=== PATIENT | female | born 1970 ===

== ENCOUNTER 2016-08-03 10:10 | Emergency (ER) | payer OTHER ==
[2016-08-03 10:26] VITALS: O2SAT 98
[2016-08-03] MEDS ORDERED: Alum-Mag Hydrox-Simethicone Susp (30 mL) PO STA (11:40)
[2016-08-03] MEDS ORDERED: Sodium Chloride 0.9% 1,000 ML IV STA (11:41)
--- NOTE | 2016-08-03 11:43 | ED PDOC ---
HPI: Abdomen Time Seen by Provider: 08/03/16 10:24 Chief Complaint (Nursing): Abdominal Pain Chief Complaint (Provider): Abdominal Pain History Per: Patient Additional Complaint(s): 45 yo female, denies any PMH, presents to ED with complaints of epigastric abdominal pain and diarrhea x 2 days, which developed after drinking black coffee in the morning. denies any vomiting. No fever or chills. no nausea or vomiting., no medications taken to alleviate symptoms thus far. Past Medical History Reviewed: Nursing Documentation, Vital Signs Vital Signs: Last Vital Signs Temp 98 F 08/03/16 10:23 Pulse Resp BP Pulse Ox 98 08/03/16 11:43 - Medical History PMH: No Chronic Diseases - Surgical History Surgical History: No Surg Hx - Family History Family History: States: No Known Family Hx - Living Arrangements Living Arrangements: With Family - Social History Current smoker - smoking cessation education provided: No Alcohol: None Drugs: Denies - Home Medications Home Medications: Ambulatory Orders Medication Instructions Recorded Famotidine [Pepcid] 20 mg PO DAILY #20 tab 08/03/16 - Allergies Allergies/Adverse Reactions: Allergies Allergy/AdvReac Type Severity Reaction Status Date / Time No Known Allergies Allergy Verified 08/03/16 10:23 Review of Systems ROS Statement: Except As Marked, All Systems Reviewed And Found Negative Gastrointestinal: Positive for: Nausea, Vomiting, Abdominal Pain Physical Exam - Reviewed Nursing Documentation Reviewed: Yes Vital Signs Reviewed: Yes - Physical Exam Appears: Positive for: Well, Non-toxic, No Acute Distress Head Exam: Positive for: ATRAUMATIC, NORMAL INSPECTION, NORMOCEPHALIC Skin: Positive for: Normal Color, Warm, DRY Eye Exam: Positive for: EOMI, Normal appearance, PERRL ENT: Positive for: Normal ENT Inspection Neck: Positive for: Normal, Painless ROM Cardiovascular/Chest: Positive for: Regular Rate, Rhythm Respiratory: Positive for: CNT, Normal Breath Sounds Gastrointestinal/Abdominal: Positive for: Bowel Sounds, Soft, Tenderness ( epigastric) Back: Positive for: Normal Inspection Extremity: Positive for: Normal ROM Neurologic/Psych: Positive for: Alert, Oriented - Laboratory Results Result Diagrams: 08/03/16 06:36 08/03/16 06:36 - ECG O2 Sat by Pulse Oximetry: 98 Medical Decision Making Medical Decision Making: IV access established and treatment initiated with IVF, Pepcid and GI cocktail EKG NSR at 78 bpm, no axis deviation or acute ST changes, as read by [facility] ordered. Labs resulted and reviewed with Pt who demonstrated full understanding Pt medicated with K.Dur due to potassium of 3.4 Pt on re-eval reports feeling greatly improved. Abdomen soft, non tender and non distended on re-eval Stable for discharge at this time. Disposition - Clinical Impression Clinical Impression: Gastritis - Patient ED Disposition Is Patient to be Admitted: No - Disposition Disposition: Routine/Home Disposition Time: 14:58 Condition: STABLE Prescriptions: Famotidine [Pepcid] 20 mg PO DAILY #20 tab Instructions: Gastritis (ED)
[2016-08-03] MEDS ORDERED: Alum-Mag Hydrox-Simethicone Susp (30 mL) ONE (11:52)
[2016-08-03 12:00] LABS: BASO # 0.1 K/uL (0.0-0.2); BASO % 1.2 % (0.0-2.0); EOS # 0.1 K/uL (0.0-0.7); EOS % 1.7 % (0.0-4.0); HEMATOCRIT 26.5 % (34.0-47.0); LYMPH # 1.1 K/uL (1.0-4.3); LYMPH % 22.9 % (20.0-40.0); MEAN CELL VOLUME 64.6 fl (81.0-99.0); MEAN CORPUSCULAR HEMOGLOBIN 19.6 pg (27.0-31.0); MEAN CORPUSCULAR HGB CONC 30.4 g/dL (33.0-37.0); MEAN PLATELET VOLUME 7.7 fl (7.2-11.7); MONO # 0.6 K/uL (0.0-0.8); MONO % 11.4 % (0.0-10.0); NEUT # 3.1 K/uL (1.8-7.0); NEUT % 62.8 % (50.0-75.0); NRBC % 0.1 % (0.0-0.0); RED CELL DISTRIBUTION WIDTH 18.2 % (11.5-14.5)
[2016-08-03 12:02] LABS: URINE BILIRUBIN NEGATIVE (NEGATIVE); URINE BLOOD NEGATIVE (NEGATIVE); URINE COLOR AMBER (YELLOW); URINE GLUCOSE (UA) NEG (Normal); URINE KETONE TRACE mg/dL (NEGATIVE); URINE LEUKOCYTE ESTERASE NEG Leu/uL (Negative); URINE PROTEIN 100 mg/dL (NEGATIVE); URINE UROBILINOGEN 0.2-1.0 mg/dL (0.2-1.0); WBC URINE 3 /hpf (0-5)
[2016-08-03 12:10] LABS: ALB/GLOB RATIO 1.2 (1.0-2.1); ALKALINE PHOSPHATASE 69 U/L (38-126); ALT/SGPT 27 U/L (9-52); AMYLASE 93 U/L (30-110); AST/SGOT 24 U/L (14-36); BILIRUBIN,TOTAL 0.2 mg/dl (0.2-1.3); BLOOD UREA NITROGEN 13 mg/dl (7-17); CALCIUM 8.3 mg/dL (8.4-10.2); CARBON DIOXIDE 21 mmol/L (22-30); CHLORIDE 108 mmol/L (98-107); GFR AFRICAN-AMERICAN > 60; GLUCOSE,RANDOM 96 mg/dL (65-105); LIPASE 116 U/L (23-300); POTASSIUM 3.4 MMOL/L (3.6-5.0); SODIUM 142 mmol/l (132-148); TOTAL PROTEIN 7.6 G/DL (6.3-8.2)
--- NOTE | 2016-08-03 13:41 | CARD ---
APPROVED REPORT EKG Measurement Heart [id number] CT 140P69 [id number] <Conclusion> Normal sinus rhythm Normal ECG
[2016-08-03 15:33] VITALS: BP 127/78; PULSE 78; RESP 20; TEMP 97.6
== END 2016-08-03 15:35 | disposition home or self-care (01) ==
LOC: H.ER 10:10
DX: K29.70 Gastritis, unspecified, without bleeding (principal); R10.9 Unspecified abdominal pain

== ENCOUNTER 2016-11-01 19:08 | Emergency (ER) | payer OTHER ==
[2016-11-01 19:17] VITALS: BP 153/84; RESP 101; TEMP 98.1; O2SAT 100
--- NOTE | 2016-11-01 20:01 | ED PDOC ---
HPI: Back Time Seen by Provider: 11/01/16 19:19 Chief Complaint (Nursing): Back Pain Chief Complaint (Provider): Back Pain History Per: Patient History/Exam Limitations: no limitations Onset/Duration Of Symptoms: Days (x1 month) Current Symptoms Are (Timing): Still Present Additional Complaint(s): Kelly Olsen is a 45 year old female who presents to the emergency department with a complaint of lower back pain exacerbated with exertion ongoing for 1 month. Denied dysuria, constipation, diarrhea, fever or chills. Patient stated she was unable to follow up with PCP due to work conflict and usually takes Tylenol to alleviate pain. PMD: none provided Past Medical History Reviewed: Historical Data, Nursing Documentation, Vital Signs Vital Signs: Last Vital Signs Temp 98.1 F 11/01/16 19:14 Pulse Resp 101 H 11/01/16 19:14 BP 153/84 H 11/01/16 19:14 Pulse Ox 100 11/01/16 19:14 - Medical History PMH: No Chronic Diseases - Surgical History Surgical History: No Surg Hx - Family History Family History: States: Unknown Family Hx - Living Arrangements Living Arrangements: With Family - Social History Current smoker - smoking cessation education provided: No Alcohol: None Drugs: Denies - Home Medications Home Medications: Ambulatory Orders Medication Instructions Recorded Famotidine [Pepcid] 20 mg PO DAILY #20 tab 08/03/16 Cyclobenzaprine [Cyclobenzaprine 10 mg PO Q8H PRN #12 tab 11/01/16 HCl] Naproxen 500 mg PO Q12H PRN #20 ect 11/01/16 - Allergies Allergies/Adverse Reactions: Allergies Allergy/AdvReac Type Severity Reaction Status Date / Time No Known Allergies Allergy Verified 11/01/16 19:13 Review of Systems ROS Statement: Except As Marked, All Systems Reviewed And Found Negative Constitutional: Negative for: Fever, Chills Gastrointestinal: Negative for: Diarrhea, Constipation Genitourinary Female: Negative for: Dysuria Musculoskeletal: Positive for: Back Pain (lower) Physical Exam - Reviewed Nursing Documentation Reviewed: Yes Vital Signs Reviewed: Yes - Physical Exam Appears: Positive for: Well, Non-toxic, No Acute Distress Head Exam: Positive for: ATRAUMATIC, NORMAL INSPECTION, NORMOCEPHALIC Skin: Positive for: Normal Color, Warm, DRY Eye Exam: Positive for: Normal appearance ENT: Positive for: Normal ENT Inspection Neck: Positive for: Normal, Painless ROM Cardiovascular/Chest: Positive for: Regular Rate, Rhythm Respiratory: Positive for: Normal Breath Sounds. Negative for: Respiratory Distress Back: Positive for: Vertebral Tenderness (L2-L4), Muscle Spasm. Negative for: Normal Inspection Extremity: Positive for: Normal ROM. Negative for: Tenderness, Pedal Edema, Deformity Neurologic/Psych: Positive for: Alert, Oriented - ECG O2 Sat by Pulse Oximetry: 100 (RA) Pulse Ox Interpretation: Normal Medical Decision Making Medical Decision Making: Initial Impression: Back pain Initial Plan: * Flexeril 10mg PO * Motrin 600mg PO * Xray spine Scribe Attestation: Documented by Nelly Ibrahim, acting as a scribe for Zulma Bedoya PA-C. Provider Scribe Attestation: All medical record entries made by the Scribe were at my direction and personally dictated by me. I have reviewed the chart and agree that the record accurately reflects my personal performance of the history, physical exam, medical decision making, and the department course for this patient. I have also personally directed, reviewed, and agree with the discharge instructions and disposition. Disposition - Clinical Impression Clinical Impression: Sciatica - Patient ED Disposition Is Patient to be Admitted: No Counseled Patient/Family Regarding: Diagnosis, Need For Followup, Rx Given - Disposition Referrals: [facility] [Outside] Disposition: Routine/Home Disposition Time: 21:09 Condition: GOOD Prescriptions: Cyclobenzaprine [Cyclobenzaprine HCl] 10 mg PO Q8H PRN #12 tab PRN Reason: Muscle Spasm Naproxen 500 mg PO Q12H PRN #20 ect PRN Reason: Pain, Severe (8-10) Instructions: Sciatica (ED) Forms: NTQ-Data (Lithuanian) Print Language: ROMANIAN
--- NOTE | 2016-11-02 08:38 | RAD ---
PROCEDURE: Radiographs of the Lumbar Spine. HISTORY: Low back pain x 1 month, since fall at work COMPARISON: No prior. FINDINGS: BONES: Normal alignment. No listhesis. No fracture. DISC SPACES: Unremarkable. OTHER FINDINGS: None. IMPRESSION: No significant or acute findings to account for/ related to the clinical presentation. No preliminary report provided by emergency department personnel.
== END 2016-11-01 21:58 | disposition home or self-care (01) ==
LOC: H.ER 19:08
DX: M54.30 Sciatica, unspecified side (principal)

== ENCOUNTER 2016-12-16 16:28 | Observation (INO) | payer SELFPAY ==
--- NOTE | 2016-12-16 17:13 | ED PDOC ---
HPI: General Adult <ClaribelyeniferJenni - Last Filed: 12/16/16 18:31> <Shanell Coelho - Last Filed: 12/16/16 23:29> Chief Complaint (Nursing): Abnormal Labs Additional Complaint(s): 46F referred by [facility] for symptomatic, microcytic anemia with a hemoglobinopathy profile c/w either alpha-thalassemia or iron-deficiency anemia. Patient does report dizziness upon standing from a bent over position and intermittent palpitations with chronic fatigue. She denies chest pain, menorrhagia (3 day duration with 2 pads/day), rectal bleeding, or vomiting blood. She reports she' s known about her anemia for a long time and has been prescribed iron pills in the past, but she admits she does not take the pills. PMH: None PSH: C-sxn x2 Smoke: No Alcohol: No Drugs: No Meds: None Allergies: NKDA LMP: 12/12/2016 (Jenni Arredondo) Supervising Attending Note <Jenni Arredondo - Last Filed: 12/16/16 18:31> - Supervising Attending Note The Documented history was done by the: Physician Gem Expert, Attending Physician The documented physical exam was done by the: Physician Gem Expert, Attending Physician - Attestation: I have personally seen and examined this patient.: Yes I have fully participated in the care of the patient.: Yes I have reviewed all pertinent clinical information, including history, physical exam and plan: Yes <Shanell Coelho - Last Filed: 12/16/16 23:29> - Notes: Notes:: Anemia and marked iron deficiency. DW Dr Catalino Ibrahim HemOnc senior insight manager international. Pt will be hospitalized for transfusion and IV iron. (Shanell Coelho) Past Medical History - Family History Family History: States: Unknown Family Hx <Jenni Arredondo - Last Filed: 12/16/16 18:31> <Shanell Coelho - Last Filed: 12/16/16 23:29> Vital Signs: Last Vital Signs Temp 98 F 12/16/16 21:39 Pulse 75 12/16/16 22:06 Resp 18 12/16/16 22:06 BP 144/87 12/16/16 21:39 Pulse Ox 100 12/16/16 21:39 - Home Medications Home Medications: Ambulatory Orders Medication Instructions Recorded No Known Home Med 12/16/16 - Allergies Allergies/Adverse Reactions: Allergies Allergy/AdvReac Type Severity Reaction Status Date / Time No Known Allergies Allergy Verified 12/16/16 16:36 Review of Systems ROS Statement: Except As Marked, All Systems Reviewed And Found Negative Constitutional: Positive for: Other (Fatigue) Cardiovascular: Positive for: Palpitations Neurological: Positive for: Dizziness <Jenni Arredondo - Last Filed: 12/16/16 18:31> Physical Exam - Reviewed Vital Signs Reviewed: Yes - Physical Exam Appears: Positive for: Well, Non-toxic, No Acute Distress Head Exam: Positive for: ATRAUMATIC, NORMAL INSPECTION Skin: Positive for: Normal Color, Warm, Dry Eye Exam: Positive for: Other (Scleral pallor) Neck: Positive for: Normal, Supple Cardiovascular/Chest: Positive for: Regular Rate, Rhythm, Tachycardia Respiratory: Positive for: Normal Breath Sounds. Negative for: Rales, Rhonchi, Wheezing, Respiratory Distress Gastrointestinal/Abdominal: Positive for: Normal Exam, Bowel Sounds, Soft. Negative for: Tenderness Extremity: Positive for: Normal ROM. Negative for: Pedal Edema Neurologic/Psych: Positive for: Alert, Oriented <Jenni Arredondo - Last Filed: 12/16/16 18:31> - Laboratory Results Result Diagrams: 12/16/16 17:20 12/16/16 17:20 - ECG O2 Sat by Pulse Oximetry: 100 <Jenni Arredondo - Last Filed: 12/16/16 18:31> - Laboratory Results Result Diagrams: 12/16/16 17:20 12/16/16 17:20 <Shanell Coelho - Last Filed: 12/16/16 23:29> Medical Decision Making <Jenni Arredondo - Last Filed: 12/16/16 18:31> <Shanell Coelho - Last Filed: 12/16/16 23:29> Medical Decision Making: Symptomatic microcytic anemia. - Repeat CBC-microcytic anemia (Hgb-7.3, MCV-61.6), CMP- WNL, Coags - Orthostatics- negative - Upreg-neg/Urine Dip - T&S- completed Discussed with attending and decision made to admit for obs pending heme/onc evaluation. (Jenni Arredondo) Disposition - Patient ED Disposition Is Patient to be Admitted: Yes Counseled Patient/Family Regarding: Studies Performed, Diagnosis, Need For Followup - Disposition Disposition Time: 18:29 - Pt Status Changed To: Hospital Disposition Of: Observation <Jenni Arredondo - Last Filed: 12/16/16 18:31> <Shanell Coelho - Last Filed: 12/16/16 23:29> - Clinical Impression Clinical Impression: Symptomatic anemia - Disposition Condition: GOOD
[2016-12-16] MEDS ORDERED: Sodium Chloride 0.9% 500 ML IV STA (17:25)
[2016-12-16 17:30] LABS: BASO # 0.1 K/uL (0.0-0.2); BASO % 0.7 % (0.0-2.0); EOS # 0.1 K/uL (0.0-0.7); EOS % 1.2 % (0.0-4.0); HEMATOCRIT 24.3 % (34.0-47.0); LYMPH # 2.4 K/uL (1.0-4.3); MEAN CELL VOLUME 61.6 fl (81.0-99.0); MEAN CORPUSCULAR HEMOGLOBIN 18.5 pg (27.0-31.0); MEAN CORPUSCULAR HGB CONC 30.1 g/dL (33.0-37.0); MEAN PLATELET VOLUME 7.6 fl (7.2-11.7); MONO # 0.5 K/uL (0.0-0.8); MONO % 6.8 % (0.0-10.0); NEUT # 4.3 K/uL (1.8-7.0); NEUT % 58.3 % (50.0-75.0); NRBC % 0.2 % (0.0-0.0); RED CELL DISTRIBUTION WIDTH 19.2 % (11.5-14.5); WHITE BLOOD COUNT 7.4 K/uL (4.8-10.8)
[2016-12-16 17:45] LABS: ALB/GLOB RATIO 1.3 (1.0-2.1); ALKALINE PHOSPHATASE 66 U/L (38-126); ALT/SGPT 22 U/L (9-52); AST/SGOT 24 U/L (14-36); BILIRUBIN,TOTAL 0.1 mg/dl (0.2-1.3); BLOOD UREA NITROGEN 14 mg/dl (7-17); CALCIUM 8.8 mg/dL (8.4-10.2); CARBON DIOXIDE 23 mmol/L (22-30); CHLORIDE 107 mmol/L (98-107); GFR AFRICAN-AMERICAN > 60; GLUCOSE,RANDOM 108 mg/dL (65-105); POTASSIUM 3.7 MMOL/L (3.6-5.0); SODIUM 141 mmol/l (132-148); TOTAL PROTEIN 7.5 G/DL (6.3-8.2)
[2016-12-16 17:47] LABS: PARTIAL THROMBOPLASTIN TIME 25.3 Seconds (25.6-37.1)
--- NOTE | 2016-12-16 19:43 | CP.PCM.HP ---
History of Present Illness - History of Present Illness History of Present Illness: 46yo F with PMHx BHAVIK admitted for symptomatic anemia. Anemia x10 years, has not taken Fe PO as instructed by prior PMD. LMP 12/12/16, regular, normal amount of bleeding, q28 days, duration 3 days with 2pads daily. In past 1 year, no breakthrough bleeding between periods. Denies dizziness, lightheadedness, SOB, ESTRELLA, exercise intolerance. Denies PMH/FHx cervical ca, breast ca, ovarian ca. Denies fibroids. PMHx: as above FHx: NC Meds: check in [facility] Social hx: denies EtOH, smoking, drugs Allergies: NKDA PCP: [facility] ED course: VSS CBC, CMP, T&S, PT, PTT 1u pRBC, transfuse 1 unit c/s H/O Present on Admission - Present on Admission Any Indicators Present on Admission: No Review of Systems - Review of Systems All systems: reviewed and no additional remarkable complaints except Past Patient History - Past Social History Smoking Status: Never Smoked - MUSCULOSKELETAL/RHEUMATOLOGICAL Hx Back Pain: Yes - PSYCHIATRIC Hx Substance Use: No - SURGICAL HISTORY Hx Surgeries: Yes Meds Allergies/Adverse Reactions: Allergies Allergy/AdvReac Type Severity Reaction Status Date / Time No Known Allergies Allergy Verified 12/16/16 16:36 Physical Exam - Constitutional Appears: Non-toxic, No Acute Distress - Head Exam Head Exam: ATRAUMATIC, NORMOCEPHALIC - Eye Exam Eye Exam: EOMI, Normal appearance - ENT Exam ENT Exam: Mucous Membranes Moist - Neck Exam Neck exam: Positive for: Full Rom, Normal Inspection - Respiratory Exam Respiratory Exam: Clear to Auscultation Bilateral, NORMAL BREATHING PATTERN - Cardiovascular Exam Cardiovascular Exam: REGULAR RHYTHM. absent: Systolic Murmur - GI/Abdominal Exam GI & Abdominal Exam: Normal Bowel Sounds, Soft. absent: Tenderness - Extremities Exam Extremities exam: Positive for: normal inspection. Negative for: calf tenderness, pedal edema - Back Exam Back exam: NORMAL INSPECTION Additional comments: cap refill <2 sec - Neurological Exam Neurological exam: Alert, Oriented x3 - Skin Skin Exam: Dry, Warm Results - Vital Signs Recent Vital Signs: Last Vital Signs Temp 96.5 F L 12/16/16 16:36 Pulse 91 H 12/16/16 16:36 Resp 16 12/16/16 16:36 BP 118/75 12/16/16 16:36 Pulse Ox 100 12/16/16 18:31 - Labs Result Diagrams: 12/16/16 17:20 12/16/16 17:20 Labs: Laboratory Results - last 24 hr 12/16/16 12/16/16 12/16/16 17:20 17:20 17:20 WBC 7.4 RBC 3.94 Hgb 7.3 L Hct 24.3 L MCV 61.6 L MCH 18.5 L MCHC 30.1 L RDW 19.2 H Plt Count 416 H MPV 7.6 Neut % (Auto) 58.3 Lymph % (Auto) 33.0 [place] % (Auto) 6.8 Eos % (Auto) 1.2 Baso % (Auto) 0.7 Neut # 4.3 Lymph # 2.4 [place] # 0.5 Eos # 0.1 Baso # 0.1 PT 11.8 INR 1.0 APTT 25.3 L Sodium 141 Potassium 3.7 Chloride 107 Carbon Dioxide 23 Anion Gap 14 BUN 14 Creatinine 0.6 L Est GFR ( Amer) > 60 Est GFR (Non-Af Amer) > 60 Random Glucose 108 H Calcium 8.8 Total Bilirubin 0.1 L AST 24 ALT 22 Alkaline Phosphatase 66 Total Protein 7.5 Albumin 4.2 Globulin 3.3 Albumin/Globulin Ratio 1.3 Blood Type Antibody Screen Crossmatch BBK History Checked 12/16/16 17:20 WBC RBC Hgb Hct MCV MCH MCHC RDW Plt Count MPV Neut % (Auto) Lymph % (Auto) [place] % (Auto) Eos % (Auto) Baso % (Auto) Neut # Lymph # [place] # Eos # Baso # PT INR APTT Sodium Potassium Chloride Carbon Dioxide Anion Gap BUN Creatinine Est GFR ( Amer) Est GFR (Non-Af Amer) Random Glucose Calcium Total Bilirubin AST ALT Alkaline Phosphatase Total Protein Albumin Globulin Albumin/Globulin Ratio Blood Type O POSITIVE Antibody Screen Negative Crossmatch See Detail BBK History Checked No verified bt Assessment & Plan - Assessment and Plan (Free Text) Assessment: 46yo F with PMHx BHAVIK admitted for symptomatic anemia. 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 Bed Request Type: Telemetry Admitting Physician: Elsa Phillips
--- NOTE | 2016-12-16 21:16 | US ---
EXAM: US Pelvis Complete, Transabdominal CLINICAL HISTORY: 46 years old, female; Signs and symptoms; Menstruation abnormalities; Irregular menstruation; Additional info: Dysfunctional uterine bleeding TECHNIQUE: Real-time transabdominal pelvic ultrasound (complete) with image documentation. COMPARISON: No relevant prior studies available. FINDINGS: Uterus/cervix: Uterus measures 9.0 x 4.6 x 5.5 cm in size. No myometrial mass. Endometrium: 0.5 cm in thickness. Right ovary: 1.7 x 1.2 x 1.7 cm in size. No mass. Normal flow. Left ovary: 2.3 x 1.8 x 2.7 cm in size. No mass. Normal flow. Free fluid: No significant free fluid. Bladder: Unremarkable as visualized. IMPRESSION: 1.No acute findings.
[2016-12-17 05:32] LABS: HEMATOCRIT 26.2 % (34.0-47.0); MEAN CELL VOLUME 63.8 fl (81.0-99.0); MEAN CORPUSCULAR HEMOGLOBIN 19.5 pg (27.0-31.0); MEAN CORPUSCULAR HGB CONC 30.5 g/dL (33.0-37.0); RED CELL DISTRIBUTION WIDTH 21.3 % (11.5-14.5); WHITE BLOOD COUNT 7.2 K/uL (4.8-10.8)
[2016-12-17 05:34] LABS: BLOOD UREA NITROGEN 10 mg/dl (7-17); CALCIUM 8.3 mg/dL (8.4-10.2); CARBON DIOXIDE 24 mmol/L (22-30); CHLORIDE 109 mmol/L (98-107); GFR AFRICAN-AMERICAN > 60; GLUCOSE,RANDOM 91 mg/dL (65-105); POTASSIUM 3.8 MMOL/L (3.6-5.0); SODIUM 140 mmol/l (132-148)
--- NOTE | 2016-12-17 08:13 | CP.PCM.PN ---
Subjective - Date & Time of Evaluation Date of Evaluation: 12/17/16 Time of Evaluation: 08:08 - Subjective Subjective: 46 y/o female with PMHx of iron deficiency anemia for 10 years seen and evaluated this morning at bedside. Patient appears to be resting comfortably in her bed and is in NAD. Patient is AAOx3 and denies of any acute overnight events. Patient states that she is feeling a lot better than she came in yesterday. Patient denies of any overnight F/N/V/C/shortness of breath/chest pain/palpitations/headache/dizziness. Patient states that she has been walking around to go to the bathroom. Denies of any other complains at this time. Objective - Vital Signs/Intake and Output Vital Signs (last 24 hours): Temp Pulse Resp BP Pulse Ox 98.2 F 78 20 117/77 99 12/17/16 05:50 12/17/16 05:50 12/17/16 05:50 12/17/16 05:50 12/17/16 05:50 - Labs Labs: 12/17/16 04:10 12/17/16 04:10 PT 11.8 Seconds (9.8-13.1) 12/16/16 17:20 INR 1.0 (0.9-1.2) 12/16/16 17:20 APTT 25.3 Seconds (25.6-37.1) L 12/16/16 17:20 - Constitutional Appears: Well, Non-toxic, No Acute Distress - Head Exam Head Exam: ATRAUMATIC, NORMAL INSPECTION - Eye Exam Eye Exam: Normal appearance - ENT Exam ENT Exam: Mucous Membranes Moist, Normal Exam - Neck Exam Neck Exam: Full ROM, Normal Inspection - Respiratory Exam Respiratory Exam: Clear to Ausculation Bilateral, NORMAL BREATHING PATTERN. absent: Rales, Rhonchi, Wheezes - Cardiovascular Exam Cardiovascular Exam: REGULAR RHYTHM, +S1, +S2. absent: Diastolic murmur, Murmur - GI/Abdominal Exam GI & Abdominal Exam: Soft, Normal Bowel Sounds. absent: Firm, Rigid, Tenderness - Rectal Exam Rectal Exam: Deferred - Extremities Exam Extremities Exam: Full ROM, Normal Capillary Refill, Normal Inspection. absent : Calf Tenderness, Pedal Edema, Tenderness - Back Exam Back Exam: Full ROM, NORMAL INSPECTION. absent: tenderness - Neurological Exam Neurological Exam: Alert, Awake, Oriented x3 - Psychiatric Exam Psychiatric exam: Normal Affect, Normal Mood - Skin Skin Exam: Intact, Normal Color, Warm Assessment and Plan - Assessment and Plan (Free Text) Assessment: 46 y/o female with PMHx of iron deficiency anemia admitted for symptomatic anemia. Plan: 1). Anemia - Hemoglobinopathy workup shows microcytic anemia consistent with iron deficiency anemia or a-thalassemia - 1 unit PRBC and IV venofir since yesterday - H&H 7.3/24.3 to 8.0/26.2 this morning - 1 unit of PRBC and IV venofir this morning - f/u CBC - Stool occult blood - Pending - Pelvis US shows no acute findings - Heme/onc on board 2). DVT PPx - SCDs - Ambulating
--- NOTE | 2016-12-17 11:09 | CP.PCM.CON ---
History of Present Illness - History of Present Illness History of Present Illness: Heme/Onc 46 yr old F with PMHx of iron deficiency anemia and irregular menstrual cycle in the last 4 months admitted for symptomatic anemia. Patient was seen and examined at bedside. Denies weakness, SOB, headachess, dizziness or GI/pelvic discomfort. Patient reports she has required iron supplements since childhood and has always been healthy overall. She has forgotten to take iron supplements regularly in the past few months and has not followed up with her PMD. 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 She usually has a 28 day menstrual cycle, but in the last 4 months has had 2 additional periods, all with normal amount of bleeding ( 2 pads daily x 3 days). Patient also reports mild gastritis. Patient has no other concerns or complaints at this time. Review of Systems - Constitutional Constitutional: absent: Fatigue, Headache, Weakness - EENT Eyes: absent: Blurred Vision, Change in Vision Nose/Mouth/Throat: absent: Odynophagia, Sore Throat - Cardiovascular Cardiovascular: absent: Chest Pain, Lightheadedness, Syncope - Respiratory Respiratory: absent: Cough, Dyspnea, Hemoptysis - Gastrointestinal Gastrointestinal: absent: Abdominal Pain, Heartburn (occasional mild gastritis) , Hematochezia - Genitourinary Genitourinary: absent: Dysuria, Hematuria - Reproductive: Female Reproductive:Female: Normal Menses ((2 pads daily x 3 days); had 2 additional periods in the last 4 months). absent: Dysmenorrhea, Pelvic Pain - Musculoskeletal Musculoskeletal: absent: Arthralgias, Muscle Weakness, Numbness - Neurological Neurological: absent: Abnormal Gait, Abnormal Speech, Syncope - Endocrine Endocrine: absent: Cold Intolorance, Heat Intolorance, Palpitations - Hematologic/Lymphatic Hematologic: absent: Easy Bleeding, Easy Bruising Past Patient History - Past Medical History & Family History Past Medical History?: Yes - Past Social History Smoking Status: Never Smoked - CARDIAC Hx Cardiac Disorders: No - PULMONARY Hx Respiratory Disorders: No - NEUROLOGICAL Hx Neurological Disorder: No - HEENT Hx HEENT Problems: No - RENAL Hx Chronic Kidney Disease: No - ENDOCRINE/METABOLIC Hx Endocrine Disorders: No - HEMATOLOGICAL/ONCOLOGICAL Hx Blood Disorders: Yes Hx Anemia: Yes - INTEGUMENTARY Hx Dermatological Problems: No - MUSCULOSKELETAL/RHEUMATOLOGICAL Hx Musculoskeletal Disorders: Yes Hx Back Pain: Yes Hx Falls: No - GASTROINTESTINAL Hx Gastrointestinal Disorders: No - GENITOURINARY/GYNECOLOGICAL Hx Genitourinary Disorders: No - PSYCHIATRIC Hx Psychophysiologic Disorder: No Hx Substance Use: No - SURGICAL HISTORY Hx Surgeries: Yes Hx Section: Yes - ANESTHESIA Hx Anesthesia: Yes Hx Anesthesia Reactions: No Hx Malignant Hyperthermia: No Meds Allergies/Adverse Reactions: Allergies Allergy/AdvReac Type Severity Reaction Status Date / Time No Known Allergies Allergy Verified 12/16/16 16:36 - Medications Medications: Current Medications Iron Sucrose 300 mg/ Sodium (Chloride) 265 mls @ 132.5 mls/hr IVPB ONCE ONE Stop: 12/18/16 12:29 Physical Exam - Constitutional Appears: Well, Non-toxic, No Acute Distress - Head Exam Head Exam: ATRAUMATIC, NORMOCEPHALIC - Eye Exam Eye Exam: EOMI, PERRL. absent: Scleral icterus - ENT Exam ENT Exam: Mucous Membranes Moist - Respiratory Exam Respiratory Exam: Clear to Auscultation Bilateral, NORMAL BREATHING PATTERN - Cardiovascular Exam Cardiovascular Exam: REGULAR RHYTHM, +S1, +S2 - Extremities Exam Extremities exam: Positive for: full ROM, normal capillary refill. Negative for : pedal edema - Neurological Exam Neurological exam: Alert, CN II-XII Intact, Oriented x3 - Skin Skin Exam: Normal Color (no rash, no petechiae) Results - Vital Signs Recent Vital Signs: Last Vital Signs Temp 98.0 F 12/17/16 08:09 Pulse 74 12/17/16 09:00 Resp 19 12/17/16 08:09 BP 111/71 12/17/16 08:09 Pulse Ox 99 12/17/16 08:09 - Labs Result Diagrams: 12/17/16 04:10 12/17/16 04:10 Labs: Laboratory Results - last 24 hr 12/16/16 12/16/16 12/16/16 17:20 17:20 17:20 WBC 7.4 RBC 3.94 Hgb 7.3 L Hct 24.3 L MCV 61.6 L MCH 18.5 L MCHC 30.1 L RDW 19.2 H Plt Count 416 H MPV 7.6 Neut % (Auto) 58.3 Lymph % (Auto) 33.0 Ocean % (Auto) 6.8 Eos % (Auto) 1.2 Baso % (Auto) 0.7 Neut # 4.3 Lymph # 2.4 Ocean # 0.5 Eos # 0.1 Baso # 0.1 Retic Count PT 11.8 INR 1.0 APTT 25.3 L Sodium 141 Potassium 3.7 Chloride 107 Carbon Dioxide 23 Anion Gap 14 BUN 14 Creatinine 0.6 L Est GFR ( Amer) > 60 Est GFR (Non-Af Amer) > 60 Random Glucose 108 H Calcium 8.8 Total Bilirubin 0.1 L AST 24 ALT 22 Alkaline Phosphatase 66 Lactate Dehydrogenase Total Protein 7.5 Albumin 4.2 Globulin 3.3 Albumin/Globulin Ratio 1.3 Blood Type Blood Type Confirm Antibody Screen Crossmatch BBK History Checked 12/16/16 12/16/16 12/16/16 17:20 18:11 19:55 WBC RBC Hgb Hct MCV MCH MCHC RDW Plt Count MPV Neut % (Auto) Lymph % (Auto) Ocean % (Auto) Eos % (Auto) Baso % (Auto) Neut # Lymph # Ocean # Eos # Baso # Retic Count PT INR APTT Sodium Potassium Chloride Carbon Dioxide Anion Gap BUN Creatinine Est GFR ( Amer) Est GFR (Non-Af Amer) Random Glucose Calcium Total Bilirubin AST ALT Alkaline Phosphatase Lactate Dehydrogenase 513 Total Protein Albumin Globulin Albumin/Globulin Ratio Blood Type O POSITIVE Blood Type Confirm O POSITIVE Antibody Screen Negative Crossmatch See Detail BBK History Checked No verified bt 12/16/16 12/17/16 12/17/16 19:55 04:10 04:10 WBC 7.2 RBC 4.10 Hgb 8.0 L Hct 26.2 L MCV 63.8 L D MCH 19.5 L MCHC 30.5 L RDW 21.3 H Plt Count 320 MPV Neut % (Auto) Lymph % (Auto) Ocean % (Auto) Eos % (Auto) Baso % (Auto) Neut # Lymph # Ocean # Eos # Baso # Retic Count 1.1 PT INR APTT Sodium 140 Potassium 3.8 Chloride 109 H Carbon Dioxide 24 Anion Gap 11 BUN 10 Creatinine 0.6 L Est GFR ( Amer) > 60 Est GFR (Non-Af Amer) > 60 Random Glucose 91 Calcium 8.3 L Total Bilirubin AST ALT Alkaline Phosphatase Lactate Dehydrogenase Total Protein Albumin Globulin Albumin/Globulin Ratio Blood Type Blood Type Confirm Antibody Screen Crossmatch BBK History Checked Assessment & Plan - Assessment and Plan (Free Text) Assessment: 46 yr old F with PMHx of iron deficiency anemia and irregular menstrual cycle in last 4 months admitted for symptomatic anemia. Patient is asymptomatic with stable H/H of 8.0/26.2 s/p transfusion of 1 unit leukocyte reduced pRBC's and 1 dose of venofer. Plan: -Serum transferrin -Administer 300mg Venofer as ordered -take Ferrous sulfate 325mg PO TID -take stool softener PO TID PRN for constipation -followup with GI, heme/onc, Mechanical Car Checker and PMD as outpatient Patient seen and examined at bedside with Catalino Barbour M.D. PGY2 - Date & Time Date: 12/17/16 Time: 09:00
[2016-12-17 15:51] VITALS: BP 116/76; PULSE 76; RESP 20; TEMP 98.1; O2SAT 98
--- NOTE | 2016-12-18 04:15 | CON ---
DATE: 12/17/2016 REFERRING PHYSICIAN: REASON FOR CONSULTATION: Anemia. HISTORY OF PRESENT ILLNESS: This is a 46-year-old female with a history of anemia chronically, never taken her iron pills, which she was prescribed extending for almost a decade. Period is regular. Has no GI concerns or complaints. No heartburn, reflux or weight loss. No hematemesis or hematochezia. Currently lying in bed comfortably, in no apparent distress. PAST MEDICAL HISTORY: As above. PAST SURGICAL HISTORY: As above. MEDICATIONS: Has been reviewed. REVIEW OF SYSTEMS: All other systems have been reviewed and negative apart from the HPI. PHYSICAL EXAMINATION: GENERAL: This is a pleasant middle-aged female, lying in bed comfortably, in no apparent distress. VITAL SIGNS: Reviewed in the hospital, grossly unremarkable. HEENT: Head is normocephalic and atraumatic. Eyes, pupils equal, round and reactive to light bilaterally. No conjunctival pallor or icterus. NECK: Supple. Normal range of motion. No lymphadenopathy appreciated. LUNGS: Coarse breath sounds bilaterally. HEART: S1 and S2. Regular rate and rhythm. No murmurs appreciated. ABDOMEN: Soft, nontender. Bowel sounds present. No rebound. No guarding. RECTAL: Deferred. EXTREMITIES: Pulses felt bilaterally. SKIN: Warm, dry, and intact. NEUROLOGIC: A and O x3. LABORATORY DATA: Reviewed. WBC is 7.2; hemoglobin is 7.3 initially, now 8.0 today; platelet count is 415, now 320. Creatinine is 0.6. ASSESSMENT AND PLAN: This is a 46-year-old female with chronic anemia, unclear etiology. From a gastrointestinal standpoint, we will need at some point an endoscopy and a colonoscopy when agreeable. We will follow up with hematology as well. Thank you for the consult. Jonathan Slade MD/ PhD cc:
--- NOTE | 2016-12-18 07:20 | CP.PCM.DIS ---
Provider - Provider Date of Admission: 12/16/16 18:31 Attending physician: Elsa Phillips MD Time Spent in preparation of Discharge (in minutes): 20 Hospital Course - Lab Results Lab Results: Most Recent Lab Values WBC 7.2 K/uL (4.8-10.8) 12/17/16 04:10 RBC 4.10 Mil/uL (3.80-5.20) 12/17/16 04:10 Hgb 8.0 g/dL (12.0-16.0) L 12/17/16 04:10 Hct 26.2 % (34.0-47.0) L 12/17/16 04:10 MCV 63.8 fl (81.0-99.0) L D 12/17/16 04:10 MCH 19.5 pg (27.0-31.0) L 12/17/16 04:10 MCHC 30.5 g/dL (33.0-37.0) L 12/17/16 04:10 RDW 21.3 % (11.5-14.5) H 12/17/16 04:10 Plt Count 320 K/uL (130-400) 12/17/16 04:10 MPV 7.6 fl (7.2-11.7) 12/16/16 17:20 Neut % (Auto) 58.3 % (50.0-75.0) 12/16/16 17:20 Lymph % (Auto) 33.0 % (20.0-40.0) 12/16/16 17:20 Parke % (Auto) 6.8 % (0.0-10.0) 12/16/16 17:20 Eos % (Auto) 1.2 % (0.0-4.0) 12/16/16 17:20 Baso % (Auto) 0.7 % (0.0-2.0) 12/16/16 17:20 Neut # 4.3 K/uL (1.8-7.0) 12/16/16 17:20 Lymph # 2.4 K/uL (1.0-4.3) 12/16/16 17:20 Parke # 0.5 K/uL (0.0-0.8) 12/16/16 17:20 Eos # 0.1 K/uL (0.0-0.7) 12/16/16 17:20 Baso # 0.1 K/uL (0.0-0.2) 12/16/16 17:20 Retic Count 1.1 % (0.5-1.5) 12/16/16 19:55 PT 11.8 Seconds (9.8-13.1) 12/16/16 17:20 INR 1.0 (0.9-1.2) 12/16/16 17:20 APTT 25.3 Seconds (25.6-37.1) L 12/16/16 17:20 Sodium 140 mmol/l (132-148) 12/17/16 04:10 Potassium 3.8 MMOL/L (3.6-5.0) 12/17/16 04:10 Chloride 109 mmol/L (98-107) H 12/17/16 04:10 Carbon Dioxide 24 mmol/L (22-30) 12/17/16 04:10 Anion Gap 11 (10-20) 12/17/16 04:10 BUN 10 mg/dl (7-17) 12/17/16 04:10 Creatinine 0.6 mg/dL (0.7-1.2) L 12/17/16 04:10 Est GFR ( Amer) > 60 12/17/16 04:10 Est GFR (Non-Af Amer) > 60 12/17/16 04:10 Random Glucose 91 mg/dL (65-105) 12/17/16 04:10 Calcium 8.3 mg/dL (8.4-10.2) L 12/17/16 04:10 Transferrin 307.66 mg/dL (206-381) 12/17/16 04:20 Total Bilirubin 0.1 mg/dl (0.2-1.3) L 12/16/16 17:20 AST 24 U/L (14-36) 12/16/16 17:20 ALT 22 U/L (9-52) 12/16/16 17:20 Alkaline Phosphatase 66 U/L (38-126) 12/16/16 17:20 Lactate Dehydrogenase 513 U/L (313-618) 12/16/16 19:55 Total Protein 7.5 G/DL (6.3-8.2) 12/16/16 17:20 Albumin 4.2 g/dL (3.5-5.0) 12/16/16 17:20 Globulin 3.3 gm/dL (2.2-3.9) 12/16/16 17:20 Albumin/Globulin Ratio 1.3 (1.0-2.1) 12/16/16 17:20 Blood Type O POSITIVE 12/16/16 17:20 Blood Type Confirm O POSITIVE 12/16/16 18:11 Antibody Screen Negative 12/16/16 17:20 Crossmatch See Detail 12/16/16 17:20 BBK History Checked No verified bt 12/16/16 17:20 - Hospital Course Hospital Course: 46 y/o female with PMHx of iron deficiency anemia was admitted for symptomatic anemia. During the hospital stay, patient received 2 units of PRBC and 2 IV venofir. Patient was also seen by hematology. Patient became stable after the transfusion. Patient was discharged home with a CBC script, GI clinic and PMD follow up. - Date & Time of H&P Date of H&P: 12/18/16 Time of H&P: 07:20 Discharge Exam - Head Exam Head Exam: ATRAUMATIC, NORMAL INSPECTION - Eye Exam Eye Exam: Normal appearance - ENT Exam ENT Exam: Mucous Membranes Moist, Normal Exam - Neck Exam Neck exam: Full Rom, Normal Inspection - Respiratory Exam Respiratory Exam: Clear to PA & Lateral, UNREMARKABLE. absent: Rales, Rhonchi, Wheezes - Cardiovascular Exam Cardiovascular Exam: REGULAR RHYTHM, +S1, +S2. absent: Tachycardia, Diastolic murmur, Systolic Murmur - GI/Abdominal Exam GI & Abdominal Exam: Normal Bowel Sounds, Soft, Unremarkable. absent: Firm, Rigid - Rectal Exam Rectal Exam: Deferred - Extremities Exam Extremities exam: full ROM, normal inspection - Back Exam Back exam: FULL ROM, NORMAL INSPECTION. absent: tenderness - Neurological Exam Neurological exam: Alert, Oriented x3 - Psychiatric Exam Psychiatric exam: Normal Affect, Normal Mood - Skin Skin Exam: Intact, Normal Color, Warm Discharge Plan - Follow Up Plan Condition: GOOD Disposition: HOME/ ROUTINE Instructions: Iron Rich Diet (GEN), Iron Deficiency Anemia (GEN), Anemia (GEN) Additional Instructions: please repeat cbc in the Am with given script, follow up with your PCP on at 9:30am for results at the [facility] at [address] [place] [address] Please make sure to see Dr. Gipson for GI appointment on 01/29/17 at 10:30am to schedule a colonoscopy Please start taking iron TID with colace by mouth every day for the next 4weeks , iron level will be repeated after Referrals: Brandan FAULKNER,MD [facility] [Medical Doctor] -
--- NOTE | 2016-12-18 08:50 | CARD ---
APPROVED REPORT EKG Measurement Heart [id number] VA [id number] <Conclusion> Normal sinus rhythm Normal ECG
== END 2016-12-17 18:25 | disposition home or self-care (01) ==
LOC: H.ER 16:28 → H.ERHOLD 18:31 → H.TEL 21:21
PROVIDERS: ADMIT Family Medicine Geriatric Medicine; ATTEND Family Medicine Geriatric Medicine
DX: D50.9 Iron deficiency anemia, unspecified (principal); D58.2 Other hemoglobinopathies; K29.70 Gastritis, unspecified, without bleeding
CPT/HCPCS: 36415; 36430; 76856; 80048; 80053; 81025; 83010; 83615; 84466; 85025; 85027; 85044; 85610; 85730; 86850; 86900; 86920; 96360; 99281; G0378; J1756; J7040; P9051

== ENCOUNTER 2017-04-16 16:20 | Emergency (ER) | payer SELFPAY ==
[2017-04-16 16:26] VITALS: PULSE 74; RESP 16; TEMP 97.4; O2SAT 99
[2017-04-16] MEDS ORDERED: Sodium Chloride 0.9% 1,000 ML IV STA (17:31)
--- NOTE | 2017-04-16 17:34 | ED PDOC ---
HPI: Abdomen Time Seen by Provider: 04/16/17 16:58 Chief Complaint (Nursing): Abdominal Pain Chief Complaint (Provider): Abd pain History Per: Patient History/Exam Limitations: no limitations Onset/Duration Of Symptoms: Days (1 week) Additional Complaint(s): Pt. with suprapubic pain for 1 week. Like a pressure. No back pain. No dysuria. No nausea, vomit, diarrhea. Had mild dizziness yesterday that is gone now. No chest pain. No dyspnea. No vaginal bleeding. No weakness, numbness, tingles, headaches. Has anemia and takes meds for it In Jan 2017 and Feb 2017 spotting for 1 day and gone. Mar 2017 no period. Past Medical History Reviewed: Nursing Documentation, Vital Signs Vital Signs: Last Vital Signs Temp 97.4 F L 04/16/17 16:23 Pulse 74 04/16/17 16:23 Resp 16 04/16/17 16:23 BP 151/100 H 04/16/17 16:23 Pulse Ox 99 04/16/17 17:35 - Medical History PMH: Anemia Denies: Chronic Kidney Disease - Family History Family History: States: Unknown Family Hx - Living Arrangements Living Arrangements: With Family - Social History Current smoker - smoking cessation education provided: No Alcohol: None - Home Medications Home Medications: Ambulatory Orders Medication Instructions Recorded No Known Home Med 12/16/16 - Allergies Allergies/Adverse Reactions: Allergies Allergy/AdvReac Type Severity Reaction Status Date / Time No Known Allergies Allergy Verified 12/16/16 16:36 Review of Systems ROS Statement: Except As Marked, All Systems Reviewed And Found Negative Gastrointestinal: Positive for: Abdominal Pain Physical Exam - Reviewed Nursing Documentation Reviewed: Yes Vital Signs Reviewed: Yes - Physical Exam Appears: Positive for: Non-toxic, No Acute Distress Head Exam: Positive for: ATRAUMATIC, NORMAL INSPECTION, NORMOCEPHALIC Skin: Positive for: Normal Color, Warm, DRY Eye Exam: Positive for: EOMI, Normal appearance, PERRL ENT: Positive for: Normal ENT Inspection Neck: Positive for: Normal, Painless ROM Cardiovascular/Chest: Positive for: Regular Rate, Rhythm Respiratory: Positive for: CNT, Normal Breath Sounds Gastrointestinal/Abdominal: Positive for: Bowel Sounds, Soft, Tenderness (mild tender suprapubic; no tenderness to left or right lower or upper quadrant; no periumbilical tenderness) Back: Positive for: Normal Inspection. Negative for: L CVA Tenderness, R CVA Tenderness Extremity: Positive for: Normal ROM. Negative for: Tenderness, Pedal Edema Neurologic/Psych: Positive for: Alert, associate designer II-XII, Oriented. Negative for: Motor/Sensory Deficits, Aphasia, Facial Droop - Laboratory Results Result Diagrams: 04/16/17 17:52 04/16/17 17:52 Interpretation Of Abn Labs: no acute Urine POC: Negative Urine dip results: Negative for: Leukocyte Esterase, Nitrate - ECG ECG: Positive for: Interpreted By Me, Viewed By Me ECG Rhythm: Positive for: Normal QRS, Normal ST Segment, Sinus Rhythm O2 Sat by Pulse Oximetry: 99 Pulse Ox Interpretation: Normal - CT Scan/US US Other Rad Studies (CT/US): Read By Radiologist Other Rad Interpretation: no acute - Progress ED Course And Treament: 1900: Stable. AAOx3. Pain free. Tolerated PO. Fu with obgyn for abnormal period. Disposition - Clinical Impression Clinical Impression: Abnormal menstrual periods - Patient ED Disposition Is Patient to be Admitted: No Counseled Patient/Family Regarding: Studies Performed, Diagnosis, Need For Followup - Disposition [facility] - [facility]19[facility]17 Disposition: Routine/Home Disposition Time: 18:16 Condition: STABLE Additional Instructions: Return if not better in 3 days. Instructions: Absent or Irregular Periods
[2017-04-16 18:27] LABS: ALB/GLOB RATIO 1.1 (1.0-2.1); ALBUMIN 4.3 g/dL (3.5-5.0); ALT/SGPT 37 U/L (9-52); AST/SGOT 37 U/L (14-36); BLOOD UREA NITROGEN 13 mg/dl (7-17); CALCIUM 8.8 mg/dL (8.4-10.2); GFR AFRICAN-AMERICAN > 60; GFR NON-AFRICAN AMERICAN > 60; LIPASE 219 U/L (23-300)
--- NOTE | 2017-04-16 18:31 | US ---
HISTORY: vaginal bleeding COMPARISON: None available. TECHNIQUE: Transvaginal ultrasound examination of the pelvis was performed. FINDINGS: LMP: 03/05/2017 UTERUS: Measures 9.5 x 4.8 x 6.2 cm. Normal in size and appearance. No fibroid or other mass lesion seen. Small nabothian cysts are noted at the cervix ENDOMETRIUM: Measures 14 mm in diameter. Unremarkable. CERVIX: No cervical abnormality identified. RIGHT OVARY: Measures 2.4 x 1.5 x 1.8 cm. No solid mass. Normal flow. LEFT OVARY: Measures 1.9 x 1.1 x 1.6 cm. No solid mass. Normal flow. FREE FLUID: No significant free fluid noted. OTHER FINDINGS: None. IMPRESSION: Mildly thick endometrium measures 1.4 centimeter. Otherwise no evidence of acute pathology.
[2017-04-16 18:33] LABS: BASO # 0.1 K/uL (0.0-0.2); BASO % 1.1 % (0.0-2.0); EOS # 0.2 K/uL (0.0-0.7); LYMPH # 2.3 K/uL (1.0-4.3); LYMPH % 31.4 % (20.0-40.0); MEAN CORPUSCULAR HEMOGLOBIN 31.5 pg (27.0-31.0); MEAN CORPUSCULAR HGB CONC 34.5 g/dL (33.0-37.0); MEAN PLATELET VOLUME 7.8 fl (7.2-11.7); MONO # 0.7 K/uL (0.0-0.8); MONO % 10.1 % (0.0-10.0); NEUT # 4.1 K/uL (1.8-7.0); NEUT % 55.4 % (50.0-75.0); NRBC % 0.1 % (0.0-0.0); RBC 4.6 Mil/uL (3.80-5.20); RED CELL DISTRIBUTION WIDTH 13.2 % (11.5-14.5); WHITE BLOOD COUNT 7.4 K/uL (4.8-10.8)
[2017-04-16 18:39] LABS: HEMOGLOBIN 14.5 g/dL (12.0-16.0); MEAN CELL VOLUME 91.3 fl (81.0-99.0)
[2017-04-16 20:27] VITALS: BP 149/78
--- NOTE | 2017-04-17 19:14 | CARD ---
APPROVED REPORT EKG Measurement Heart [id number] VA [id number] <Conclusion> Normal sinus rhythm Normal ECG
== END 2017-04-16 20:05 | disposition home or self-care (01) ==
LOC: H.ER 16:20
DX: N93.9 Abnormal uterine and vaginal bleeding, unspecified (principal)
CPT/HCPCS: 76830; 80053; 81025; 83690; 85025; 93005; 96361; 96374; 99282; J1885; J7040

== ENCOUNTER 2017-11-17 18:33 | Emergency (ER) | payer OTHER ==
[2017-11-17 18:57] VITALS: BP 128/75; PULSE 71; RESP 16; TEMP 98; O2SAT 100
== END 2017-11-17 20:28 | disposition left against medical advice (07) ==
LOC: H.ER 18:33
DX: Z02.89 Encounter for other administrative examinations (principal)

== ENCOUNTER 2017-11-26 16:10 | Emergency (ER) | payer OTHER ==
[2017-11-26 17:09] VITALS: O2SAT 100
--- NOTE | 2017-11-26 18:25 | ED PDOC ---
HPI: Abdomen Time Seen by Provider: 11/26/17 18:22 Chief Complaint (Nursing): Abdominal Pain Chief Complaint (Provider): ABD PAIN History Per: Patient (46 Y/O FEMALE HERE WITH RUQ PAIN NOTED INTERMITTENT BUT MORE FREQUENT RECENTLY. ADMITS ETOH IN PAST BUT NO LONGER CONSUMES. NO MEDICATIONS TAKEN. NO FEVERS/CHILLS. H/O CSXN.) Past Medical History Reviewed: Historical Data, Nursing Documentation, Vital Signs Vital Signs: Last Vital Signs Temp 98.2 F 11/26/17 17:07 Pulse 74 11/26/17 17:07 Resp 16 11/26/17 17:07 BP 135/92 H 11/26/17 17:07 Pulse Ox 100 11/26/17 17:07 - Medical History PMH: Anemia Denies: Chronic Kidney Disease - Family History Family History: States: Unknown Family Hx - Home Medications Home Medications: Ambulatory Orders Medication Instructions Recorded RX: No Known Home Med 12/16/16 - Allergies Allergies/Adverse Reactions: Allergies Allergy/AdvReac Type Severity Reaction Status Date / Time No Known Allergies Allergy Verified 11/26/17 17:07 Review of Systems ROS Statement: Except As Marked, All Systems Reviewed And Found Negative Gastrointestinal: Positive for: Abdominal Pain Physical Exam - Reviewed Nursing Documentation Reviewed: Yes Vital Signs Reviewed: Yes - Physical Exam Appears: Positive for: Well, Non-toxic, No Acute Distress Head Exam: Positive for: ATRAUMATIC, NORMAL INSPECTION, NORMOCEPHALIC Skin: Positive for: Normal Color, Warm, DRY Eye Exam: Positive for: EOMI, Normal appearance, PERRL ENT: Positive for: Normal ENT Inspection Neck: Positive for: Normal, Painless ROM Cardiovascular/Chest: Positive for: Regular Rate, Rhythm Respiratory: Positive for: CNT, Normal Breath Sounds Gastrointestinal/Abdominal: Positive for: Normal Exam, Soft, Tenderness (RUQ TENDERNESS) Back: Positive for: Normal Inspection Extremity: Positive for: Normal ROM Neurologic/Psych: Positive for: Alert, Oriented - Laboratory Results Result Diagrams: 11/26/17 18:45 11/26/17 18:45 - ECG O2 Sat by Pulse Oximetry: 100 - Progress ED Course And Treament: PEPCID 20 MG IV X 1 DOSE Disposition - Clinical Impression Clinical Impression: Abdominal pain in female - Patient ED Disposition Is Patient to be Admitted: Transfer of Care - Disposition Disposition: Transfer of Care Disposition Time: 20:30 Condition: FAIR Patient Signed Over To: Zulma Bedoya Handoff Comments: ULTRASOUND PENDING
[2017-11-26 18:51] LABS: SQUAMOUS EPITHIAL 2 /hpf (0-5); URINE BILIRUBIN NEGATIVE (NEGATIVE); URINE BLOOD NEGATIVE (NEGATIVE); URINE CLARITY SLIGHTY-CLOUDY (Clear); URINE COLOR YELLOW (YELLOW); URINE GLUCOSE (UA) NEG (Normal); URINE LEUKOCYTE ESTERASE NEG Leu/uL (Negative); URINE PROTEIN NEGATIVE (NEGATIVE); URINE UROBILINOGEN 0.2-1.0 mg/dL (0.2-1.0)
[2017-11-26 18:52] LABS: BASO # 0.1 K/uL (0.0-0.2); BASO % 0.9 % (0.0-2.0); EOS # 0.2 K/uL (0.0-0.7); EOS % 2.3 % (0.0-4.0); HEMOGLOBIN 14.5 g/dL (12.0-16.0); LYMPH # 2.4 K/uL (1.0-4.3); LYMPH % 29.5 % (20.0-40.0); MEAN CORPUSCULAR HEMOGLOBIN 30.9 pg (27.0-31.0); MEAN PLATELET VOLUME 7.4 fl (7.2-11.7); MONO # 0.8 K/uL (0.0-0.8); MONO % 9.9 % (0.0-10.0); NEUT # 4.6 K/uL (1.8-7.0); NEUT % 57.4 % (50.0-75.0); RBC 4.69 Mil/uL (3.80-5.20); RED CELL DISTRIBUTION WIDTH 13.9 % (11.5-14.5)
[2017-11-26 19:10] LABS: ALB/GLOB RATIO 1.1 (1.0-2.1); ALBUMIN 4.5 g/dL (3.5-5.0); ALT/SGPT 36 U/L (9-52); AST/SGOT 36 U/L (14-36); BLOOD UREA NITROGEN 13 mg/dl (7-17); GFR NON-AFRICAN AMERICAN > 60; LIPASE 194 U/L (23-300)
--- NOTE | 2017-11-26 20:58 | ED PDOC ---
- Laboratory Results Result Diagrams: 11/26/17 18:45 11/26/17 18:45 - ECG O2 Sat by Pulse Oximetry: 100 Pulse Ox Interpretation: Normal Medical Decision Making Medical Decision Making: US normal. Disposition - Clinical Impression Clinical Impression: Abdominal pain in female - POA Present On Arrival: None - Disposition Disposition: Routine/Home Disposition Time: 20:57 Condition: GOOD Prescriptions: Famotidine [Pepcid] 20 mg PO BID #28 tab Instructions: Acute Abdomen (Belly Pain), Adult (DC) Print Language: IRISH
[2017-11-26 21:28] VITALS: BP 130/85; PULSE 66; RESP 18; TEMP 97.8
--- NOTE | 2017-11-27 08:20 | US ---
Date of service: 11/26/2017 HISTORY: RUQ ABD PAIN COMPARISON: None. TECHNIQUE: Real-time transabdominal ultrasound examination of the right upper quadrant was performed.. FINDINGS: LIVER: Measures 14.9 cm in length. Normal echogenicity of the liver parenchyma. No mass. No intrahepatic bile duct dilatation. GALLBLADDER: Unremarkable. No gallstones. No gallbladder wall thickening. COMMON BILE DUCT: Measures for mm. No stones. No dilatation. PANCREAS: Unremarkable as visualized. No mass. No ductal dilatation. RIGHT KIDNEY: Measures 10.4 cm in length. Normal echogenicity. No calculus, mass, or hydronephrosis. AORTA: No aneurysmal dilatation. IVC: Unremarkable. OTHER FINDINGS: None . IMPRESSION: Unremarkable right upper quadrant ultrasound. No ultrasound evidence of acute cholecystitis. This agrees with preliminary report provided by the on-call radiologist.
== END 2017-11-26 21:28 | disposition home or self-care (01) ==
LOC: H.ER 16:10
DX: R10.2 Pelvic and perineal pain (principal)

== ENCOUNTER 2018-07-04 09:34 | Emergency (ER) | payer OTHER, SELFPAY ==
[2018-07-04 09:59] VITALS: BMI 18.1
--- NOTE | 2018-07-04 11:18 | RAD ---
PROCEDURE: Radiographs of the right humerus. HISTORY: R humeral pain x2 weeks atraumatic COMPARISON: None. TECHNIQUE: 2 views obtained. FINDINGS: BONES: No acute fracture or destructive bony lesion identified. SOFT TISSUES: Normal. OTHER FINDINGS: None. IMPRESSION: Unremarkable radiographs of right humerus.
--- NOTE | 2018-07-04 11:39 | ED PDOC ---
Upper Extremity Pain/Injury Time Seen by Provider: 07/04/18 09:57 Chief Complaint (Nursing): Upper Extremity Problem/Injury Chief Complaint (Provider): right arm pain History Per: Patient History/Exam Limitations: no limitations Onset/Duration Of Symptoms: Days (2 weeks) Current Symptoms Are (Timing): Still Present Quality: Aching Exacerbating Factor(s): Strenuous Use Of Affected Area, Movement Additional Complaint(s): 47yo female c/o R upper arm pain, throbbing/aching, mostly biceps area radiating to shoulder but not below elbow. 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 Denies weakness or numbness. Denies other joint pains, neck pain, fever or chest pain/SOB. Past Medical History Primary Care Provider: Sailaja Montejo - Medical History PMH: Anemia Denies: Chronic Kidney Disease - Surgical History Surgical History: - Family History Family History: States: Unknown Family Hx - Living Arrangements Living Arrangements: With Family - Social History Current smoker - smoking cessation education provided: No - Home Medications Home Medications: Ambulatory Orders Medication Instructions Recorded Famotidine [Pepcid] 20 mg PO BID #28 tab 11/26/17 Ibuprofen [Motrin Tab] 600 mg PO Q6 PRN #14 tab 07/04/18 - Allergies Allergies/Adverse Reactions: Allergies Allergy/AdvReac Type Severity Reaction Status Date / Time No Known Allergies Allergy Verified 11/26/17 17:07 Review of Systems ROS Statement: Except As Marked, All Systems Reviewed And Found Negative Constitutional: Negative for: Fever ENT: Negative for: Ear Pain Cardiovascular: Negative for: Chest Pain, Palpitations, Orthopnea Respiratory: Negative for: Cough, Shortness of Breath Gastrointestinal: Negative for: Nausea Genitourinary Female: Negative for: Dysuria Musculoskeletal: Positive for: Shoulder Pain, Arm Pain. Negative for: Neck Pain, Back Pain, Hand Pain, Leg Pain, Foot Pain Skin: Negative for: Rash, Lesions Neurological: Negative for: Weakness, Numbness Physical Exam - Reviewed Nursing Documentation Reviewed: Yes Vital Signs Reviewed: Yes - Physical Exam Appears: Positive for: Well, Non-toxic, No Acute Distress Head Exam: Positive for: ATRAUMATIC, NORMAL INSPECTION, NORMOCEPHALIC Skin: Positive for: Normal Color, Warm, DRY Eye Exam: Positive for: EOMI, Normal appearance, PERRL ENT: Positive for: Normal ENT Inspection Neck: Positive for: Normal, Painless ROM Cardiovascular/Chest: Positive for: Regular Rate, Rhythm Respiratory: Positive for: CNT, Normal Breath Sounds Gastrointestinal/Abdominal: Positive for: Normal Exam, Soft Extremity: Positive for: Normal ROM, Tenderness (R upper arm no erythema no edema normal pulses distally normal ROM elbow and wrist normal ROM active and passive R shoulder). Negative for: Pedal Edema, Deformity, Swelling Neurological/Psych: Positive for: Awake, Alert, Normal Tone Medical Decision Making Medical Decision Making: XRay performed unremarkable Check US r/o DVT given vague pain ongoing US reports reviewed XRay report reviewed Improved in ED, FROM active, DC from ED and refer to clinic if pain persists, trial sling x3 days only. Disposition - Clinical Impression Clinical Impression: Arm pain - Patient ED Disposition Is Patient to be Admitted: No Counseled Patient/Family Regarding: Studies Performed, Diagnosis, Need For Followup, Rx Given - Disposition Referrals: [facility] [Outside] Disposition: Routine/Home Disposition Time: 12:45 Condition: STABLE Additional Instructions: Followup with clinic for further testing if pain persists, you may need MRI or other testing. Prescriptions: Ibuprofen [Motrin Tab] 600 mg PO Q6 PRN #14 tab PRN Reason: Pain, Moderate (4-7) Instructions: Muscle Strain (DC), Making Everyday Tasks Easier With Pain Forms: [facility] (Hebrew), [facility] School/Work Excuse
--- NOTE | 2018-07-04 12:50 | US ---
Date of service: 07/04/2018 PROCEDURE: Right Upper Extremity Venous Doppler HISTORY: upper arm /biceps pain COMPARISON: None available. TECHNIQUE: Right upper extremity deep veins, including the lower internal jugular, subclavian, axillary and brachial veins, were evaluated flow, compressibility and respiratory phasicity. FINDINGS: Normal flow, compressibility and respiratory phasicity was observed in the right upper extremity deep veins. The visualize right radial and ulnar veins appear patent as well. IMPRESSION: No sonographic evidence of deep venous thrombosis right upper extremity.
--- NOTE | 2018-07-04 13:15 | US ---
Date of service: 07/04/2018 PROCEDURE: Right Upper Extremity Arterial Exam. HISTORY: RUE bicep pain/throbbing sensation COMPARISON: None available. TECHNIQUE: Grayscale and duplex Doppler evaluation of the right upper extremity was performed. FINDINGS: RIGHT UPPER EXTREMITY: * CCA : Peak Systolic Velocity-34.4: Doppler Waveform: Triphasic.: Plaque description-none appreciated. * SCA : Peak Systolic Velocity-78.5: Doppler Waveform: Triphasic.: Plaque description-none appreciated. * Axillary: Peak Systolic Velocity-67.5: Doppler Waveform: Triphasic.: Plaque description-none appreciated. * Brachial o Proximal Segment: Peak Systolic Velocity-62.8: Doppler Waveform: Triphasic.: Plaque description-none appreciated. o Distal Segment: Peak Systolic Velocity-65.4: Doppler Waveform: Triphasic.: Plaque description-none appreciated. * Radial o Peak Systolic Velocity-61.8: Doppler Waveform: Potentially biphasic: Plaque description-none identified. * Ulnar o Peak Systolic Velocity-48.1: Doppler Waveform: Triphasic.: Plaque description-none clearly evident. OTHER FINDINGS: None. IMPRESSION: No sonographic evidence of significant arterial stenosis right upper extremity though there is a borderline significant stenosis at the radial artery. Nevertheless, this is distal to the right upper extremity biceps symptomatic distribution. Clinical correlation is advised as to the potential need for added arterial imaging. Otherwise widely patent right upper extremity major arteries have been identified as discussed above.
--- NOTE | 2018-07-04 18:08 | CARD ---
APPROVED REPORT Date of service: 07/04/2018 EKG Measurement Heart [id number] <Conclusion> Normal sinus rhythm Normal ECG
[2018-07-04 19:37] VITALS: O2SAT 100
[2018-07-04 19:40] VITALS: BP 126/75; PULSE 71; RESP 16; TEMP 97.9
== END 2018-07-04 13:00 | disposition home or self-care (01) ==
LOC: H.ER 09:34
DX: M79.601 Pain in right arm (principal)